=== PATIENT | female | born 1940 | race Caucasian/White ===

== ENCOUNTER → 2016-10-01 | Outpatient (CLI) | payer OTHER ==
[~2016-10-01] MED LIST: ACET-1138 PO; APIX1TAB3 PO; ASCO10003 PO; ATEN50TA8 PO; BIOTIN PO; CALC600T9 PO; CRS/10 PO; CZR50 PO; FLEC100T21 PO; FOLI1TAB7 PO; FRS/40 PO; OMEG10007 PO; ONDA8TAB6 PO; OXYSR10 PO; POTA20TA16 PO; RXC5 PO; SENNTAB23 PO; TRAZ100T29 PO
[2016-10-01 15:14] LABS: BASO % 0.5 %; BASO ABS # 0.03 K/uL (0-0.2); COMPLETE YES; HEMATOCRIT 38.9 % (37-47); IG% 0.2 %; LYMPH % 21.8 %; LYMPH ABS # 1.36 K/uL (1.2-3.4); MEAN CELL VOLUME 93.1 fL (80-100); MEAN CORPUSCULAR HEMOGLOBIN 29.9 pg (25-34); MEAN CORPUSCULAR HGB CONC 32.1 g/dl (32-36); MEAN PLATELET VOLUME 10.9 fL (7.4-10.4); MONO % 14.6 %; NEUT % 58.9 %; PLATELET COUNT 271 K/uL (130-400); RED BLOOD COUNT 4.18 M/uL (4.2-5.4); WHITE BLOOD COUNT 6.25 K/uL (4.8-10.8)
[2016-10-01 15:28] LABS: PARTIAL THROMBOPLASTIN RATIO 1.1; PROTHROMBIN TIME (PATIENT) 10.4 SECONDS (9.0-12.0)
[2016-10-01 15:40] LABS: BLOOD UREA NITROGEN 13 mg/dl (7-18); CARBON DIOXIDE 29 mmol/L (21-32); CHLORIDE 104 mmol/L (98-107); CREATININE 0.82 mg/dl (0.60-1.20); GLUCOSE 98 mg/dl (70-99); POTASSIUM 3.9 mmol/L (3.5-5.1); SODIUM 141 mmol/L (136-145)
[2016-10-01 16:36] LABS: URINE APPEARANCE CLOUDY (CLEAR); URINE BILIRUBIN NEG (NEG); URINE COLOR YELLOW; URINE NITRITE NEG (NEG); URINE PH 7.5 (4.5-7.5); UROBILINOGEN NEG (NEG)
[2016-10-01 16:43] LABS: MANUAL MICROSCOPIC REQUIRED? NO; REVIEW REQ? NO
[2016-10-02 06:55] LABS: ESTIMATED AVERAGE GLUCOSE 88 mg/dl; HA1C FLAG Normal (Normal)
--- NOTE | 2016-10-06 12:21 | CODING QUERY MEDICAL NECESSITY ---
SUPPORTING DIAGNOSIS NEEDED A supporting diagnosis is required for the test/procedure performed on this patient in order for us to be reimbursed by the patient's insurance. Please provide a supporting diagnosis for the following test/procedure listed below next to the test name along with your signature. *If there is no additional diagnosis for this patient that would support the following test/procedure please document that below next to the test/procedure. Test(s)/Procedure(s) that require a supporting diagnosis: DOS 10/01 * Hba1c DIAGNOSIS: * CBC DIAGNOSIS: * PTINR DIAGNOSIS: Provider Signature: Date: Thank you Gilda Moul[facility] Health Information Management Once completed, please kindly fax back to [phone] For questions please call [phone]
== END | disposition home or self-care (01) ==
LOC: C.LAB 14:07
DX: Z01.812 Encounter for preprocedural laboratory examination (principal)

== ENCOUNTER 2016-10-16 10:50 | Inpatient (IN) | payer OTHER ==
[2016-10-06 15:43] VITALS: BMI 28.0
--- NOTE | 2016-10-15 10:37 | HISTORY & PHYSICAL EXAMINATION ---
DATE OF ADMISSION: 10/16/2016 CHIEF COMPLAINT: Right knee pain. HISTORY OF PRESENT ILLNESS: The patient is a 76-year-old female approximately 3 months status post revision right total knee arthroplasty. She suffered a fall around Leah time. She was seen and evaluated in our office and x-rays and examination did not reveal any obvious significant injuries. She was reevaluated several weeks ago and continues to have extensor lag with her knee lacking approximately 30 degrees of terminal extension. Due to this extensor abnormality, she is now scheduled for a right total knee exploration and possible extensor mechanism repair. PAST MEDICAL HISTORY: Hypertension, atrial fibrillation, hyperlipidemia, ulcerative colitis in remission, mitral regurg, coronary artery disease. PAST SURGICAL HISTORY: Right total knee and right total knee revision as above, left total knee arthroplasty, multiple endoscopies, mastectomy, heart catheterization. MEDICATIONS: Include furosemide 40 mg daily, vitamin C 500 mg daily, calcium daily, folic acid 1 mg daily, stool softener 2 daily, atenolol 50 mg daily, Crestor 10 mg daily, fish oil 1200 mg daily, flecainide 100 mg 2 times daily, Eliquis 5 mg daily, trazodone 100 mg daily, losartan 50 mg daily, potassium chloride 10 mEq daily. ALLERGIES: No known drug allergies. SOCIAL HISTORY AND REVIEW OF SYSTEMS: Noncontributory. PHYSICAL EXAMINATION: GENERAL: Well-nourished, well-developed elderly female who appears her stated age. HEENT: Normocephalic, atraumatic, extraocular movements intact, oropharynx pink and moist. NECK: Supple without adenopathy. LUNGS: Clear to auscultation bilaterally. HEART: Regular rate and rhythm. ABDOMEN: Soft, nontender, nondistended. EXTREMITIES: The upper extremities are within normal limits. The right knee has a well-healed midline incision from her previous arthroplasty. She lacks approximately 30 degrees of terminal knee extension. There is no obvious palpable defect in the medial retinacular/extensor mechanism region. X-RAYS: X-rays were reviewed. She has a revision total knee in place. There is no obvious malalignment of the patella on the merchant view. ASSESSMENT: Right total knee extensor lag status post recent fall, possible extensor mechanism disruption. PLAN: Risks versus benefits were discussed. Consent was obtained. The patient's primary care physician is Dr. Alexis Lennon from [place]. Will proceed with right total knee exploration and possible extensor mechanism repair in the near future.
[2016-10-16] VITALS (7 sets, daily range): BP systolic 121–156; BP diastolic 65–76; PULSE 57–70; TEMP 36.4–37.3; O2SAT 93–95; Ht 149.9 cm; Wt 65.9 kg
[~2016-10-16] VITALS: Ht 149.9 cm; Wt 65.9 kg
[~2016-10-16 10:50] MED LIST changes: -ACET-1138 PO; +ATROPINE SULFATE 0.1 MG/ML 5ML SYR IV PRN; +BUPIVACAINE 0.25% 30 ML VIAL ONE; +BUPIVACAINE 0.5 % 5 MG/1 ML PF 10ML VIAL ONE; +EpHEDrine SULFATE INJ 50 MG/ML AMP IV PRN; +FENTANYL CITRATE INJ 50 MCG/1 ML 2 ML VIAL IV PRN; +LACTATED RINGER'S 1000ML 1,000 ML IV SCH; -ONDA8TAB6 PO; +ONDANSETRON INJ 2 MG/ML 2 ML VIAL IV PRN; -OXYSR10 PO; -RXC5 PO
[2016-10-16] MEDS ORDERED: FENTANYL CITRATE INJ 50 MCG/1 ML 2 ML VIAL ONE (11:45)
[2016-10-16] MEDS ORDERED: MIDAZOLAM HCL 1 MG/ML 2ML VIAL ONE (11:45)
--- NOTE | 2016-10-16 12:24 | History & Physical Bridge Note ---
H&P Re-Evaluation Bridge Note: I have examined the patient, reviewed the History & Physical and in the interval since the performance of the History & Physical I have noted the following changes of clinical significance: No changes noted
[2016-10-16] MEDS ORDERED: BACITRACIN 50000 UNIT VIAL ONE (12:58)
[2016-10-16] MEDS ORDERED: POVIDONE-IODINE OP SOLN 30 ML BTL ONE (12:58)
[2016-10-16] MEDS ORDERED: CEFAZOLIN SOD 1000MG/55 ML D5W IV ONE (13:24)
[2016-10-16] MEDS ORDERED: NURSING VERBAL MED ORDER STA (13:29)
--- NOTE | 2016-10-16 14:26 | [facility] Post Operative Brief Note ---
Immediate Operative Summary Operative Date Oct 16, 2016. Pre-Operative Diagnosis extensor mechanism rupture right tka revision Post-Operative Diagnosis swame Procedure(s) Performed repain extensor mechanism and lateral snip Surgeon Estefani Industrial Nurse Surgeon(s) Brittnee Estimated Blood Loss 18cc Findings rupture swuperior pole extensor mechanism and lateral snip Specimens none Anesthesia spinal Complication(s) None Disposition Recovery Room / PACU
[2016-10-16] MEDS ORDERED: OXYCODONE/ACETAMINOPHEN 5-325 TAB PO PRN (14:45)
[2016-10-16] MEDS ORDERED: ALUMINUM/MAGNESIUM/SIMETH (MAALOX MAX) 30 ML UDC PO PRN (14:45)
[2016-10-16] MEDS ORDERED: BISACODYL 10 MG SUPP PR PRN (14:45)
[2016-10-16] MEDS ORDERED: FUROSEMIDE 40 MG TAB PO PRN (14:45)
[2016-10-16] MEDS ORDERED: MoRPHine SULFATE 2 MG/ML CARP IV PRN (14:45)
[2016-10-16] MEDS ORDERED: ONDANSETRON INJ 2 MG/ML 2 ML VIAL IV PRN (14:45)
[2016-10-16] MEDS ORDERED: ZOLPIDEM TARTRATE 5 MG TAB PO PRN (14:45)
[2016-10-16] MEDS ORDERED: METOCLOPRAMIDE HCL INJ 5 MG/ML 2 ML VIAL IV PRN (14:45)
[2016-10-16] MEDS ORDERED: POTASSIUM CHLORIDE 20 MEQ TABCR PO PRN (14:45)
[2016-10-16] MEDS ORDERED: MAGNESIUM HYDROXIDE SUSP 30 ML UDC PO PRN (14:45)
[2016-10-16] MEDS ORDERED: IV FLUIDS COMPLETED PRN (15:00)
[2016-10-16] MEDS ORDERED: MoRPHine SULFATE 4 MG/ML 1 ML CARP\\VIAL IV PRN (15:30)
[2016-10-16] MEDS ORDERED: MoRPHine SULFATE 10 MG/ML CARP/VIAL IV PRN (15:30)
--- NOTE | 2016-10-16 15:32 | Anesthesiology Progress Note ---
Anesthesia Post Op Note Date & Time Oct 16, 2016 at 15:32 Vital Signs Pain Intensity: 0 Vital Signs Past 12 Hours Date Time Temp Pulse Resp B/P Pulse Ox O2 Delivery O2 Flow Rate FiO2 10/16/16 15:25 64 14 115/54 98 Nasal Cannula 2 10/16/16 15:15 62 13 108/55 96 Nasal Cannula 2 10/16/16 15:05 61 14 105/57 95 Nasal Cannula 2 10/16/16 14:55 63 16 105/49 96 Nasal Cannula 2 10/16/16 14:45 59 16 103/45 93 Nasal Cannula 2 10/16/16 14:36 37.1 62 16 86/41 92 Nasal Cannula 2 10/16/16 11:46 36.4 57 18 129/68 93 Room Air Notes Mental Status: alert / awake / arousable, participated in evaluation Pt Amnestic to Procedure: Yes Nausea / Vomiting: adequately controlled Pain: adequately controlled Airway Patency, RR, SpO2: stable & adequate BP & HR: stable & adequate Hydration State: stable & adequate Neuraxial Anesthesia: was administered, sensory block is resolving Anesthetic Complications: no major complications apparent
--- NOTE | 2016-10-16 16:01 | OPERATIVE REPORT ---
DATE OF OPERATION: 10/16/2016 PREOPERATIVE DIAGNOSIS: Partial extensor mechanism disruption, right total knee revision. POSTOPERATIVE DIAGNOSIS: Partial extensor mechanism disruption, right total knee revision. PROCEDURE: Exploration and repair lateral snip extensor mechanism, right knee revision. SURGEON: Dr. Smith Jara. OPERATING ROOM ORDERLY: Jordan Beaulieu PA-C. Mr. Beaulieu was essential for portions of the case including positioning, prepping, draping, surgical assistance, wound closure and dressing application. ANESTHESIA: Spinal with no sedation. COMPLICATIONS: None. DESCRIPTION OF PROCEDURE: Following induction of adequate spinal anesthesia, the patient's right leg was prepped and draped in the usual sterile manner. The limb was exsanguinated with an Esmarch bandage and a tourniquet was inflated to 300 mmHg. The superior half of the incision was reopened, subcutaneous tissue was sharply and bluntly dissected and at the superior pole of the incision in the area where the lateral snip had been made to expose the knee for the previous revision, there was found to be a defect. The knee was irrigated as much old blood was could be evacuated and was evacuated from the knee. Digital palpation along the inner surface of the joint capsule revealed no medial retinacular defect other than this small defect at the superior pole of the patella. Using #5 FiberWire sutures in [id number] fashion, the lateral snip in superior pole of the incision was repaired. Care was taken to ensure some advancing of the extensor mechanism to limit any further extensor lag. Subcutaneous tissues were closed using 0 Dexon. Skin was closed with tita. Sterile dressing of Adaptic, 4x4s, sterile Webril and medial and lateral plaster slabs was applied. The patient tolerated the procedure well. I attest to the content of the Intraoperative Record and any orders documented therein. Any exceptions are noted below. MTDD
[2016-10-16] MEDS: D5W AND 1/2NSS + 20MEQ KCL 1,000 ML IV SCH (16:47)
[2016-10-16] MEDS: FERROUS GLUCONATE 324 MG TAB PO SCH (18:14)
[2016-10-16] MEDS: KETOROLAC TROMETHAMINE 15 MG/ML VIAL IV. SCH (18:14)
[2016-10-16] MEDS ORDERED: TRAZODONE HCL 100 MG TAB PO SCH (21:00)
[2016-10-16] MEDS ORDERED: LOSARTAN POTASSIUM 50 MG TAB PO SCH (21:00)
[2016-10-16] MEDS ORDERED: ROSUVASTATIN CALCIUM 10 MG TAB PO SCH (21:00)
[2016-10-16] MEDS: PREGABALIN 75 MG CAP PO SCH (21:24)
[2016-10-16] MEDS: FLECAINIDE ACETATE 100 MG TAB PO SCH (21:24)
[2016-10-16] MEDS: ACETAMINOPHEN 500 MG TAB PO SCH (21:25)
[2016-10-16] MEDS: CEFAZOLIN IV 1,000 MG in DEXTROSE 5% 50ML 50 ML IV SCH (21:26)
[2016-10-17] MEDS: KETOROLAC TROMETHAMINE 15 MG/ML VIAL IV. SCH ×3 (00:15→13:27)
[2016-10-17] MEDS: D5W AND 1/2NSS + 20MEQ KCL 1,000 ML IV SCH (02:29)
[2016-10-17 03:43] VITALS: BP 109/61; PULSE 60; TEMP 36.4; O2SAT 97
[2016-10-17] MEDS: ACETAMINOPHEN 500 MG TAB PO SCH ×2 (05:43→13:26)
[2016-10-17] MEDS: CEFAZOLIN IV 1,000 MG in DEXTROSE 5% 50ML 50 ML IV SCH (05:43)
[2016-10-17 08:01] VITALS: BP 123/64; PULSE 58; TEMP 36.7; O2SAT 92
--- NOTE | 2016-10-17 08:08 | Orthopedic Progress Note ---
Orthopedic Progress Note Date of Service Oct 17, 2016. Subjective Post OP Day: 1 Reports: feeling well Objective N/V intact, splint C/D/I, dressing C/D/I, toes mobile Date Time Temp Pulse Resp B/P Pulse Ox O2 Delivery O2 Flow Rate FiO2 10/17/16 08:01 36.7 58 18 123/64 92 Room Air 10/17/16 03:43 36.4 60 16 109/61 97 Room Air 10/17/16 00:00 Room Air 10/16/16 23:50 36.8 57 16 127/71 94 Room Air 10/16/16 19:17 37.0 57 16 154/76 94 Room Air 10/16/16 17:51 37.3 70 16 151/75 95 Room Air 10/16/16 16:54 36.9 64 16 156/76 94 Room Air 10/16/16 16:19 36.9 66 16 135/67 94 Room Air 10/16/16 15:50 93 Room Air 10/16/16 15:50 93 Room Air 10/16/16 15:50 37.2 67 16 121/65 93 Room Air 10/16/16 15:35 36.7 65 14 121/57 95 Nasal Cannula 2 10/16/16 15:25 64 14 115/54 98 Nasal Cannula 2 10/16/16 15:15 62 13 108/55 96 Nasal Cannula 2 10/16/16 15:05 61 14 105/57 95 Nasal Cannula 2 10/16/16 14:55 63 16 105/49 96 Nasal Cannula 2 10/16/16 14:45 59 16 103/45 93 Nasal Cannula 2 10/16/16 14:36 37.1 62 16 86/41 92 Nasal Cannula 2 10/16/16 11:46 36.4 57 18 129/68 93 Room Air Assessment & Plan Assessment: 76 yo female stable POD #1 s/p extensor mechanism repair right TKA Plan: 1. Med management 2. DVT prophylaxis- Natalee Blackwell, SCDs 3. PT/OT- gait training 4. D/C planning- home w/ OPPT
[2016-10-17] MEDS ORDERED: RXC5 PO (08:10)
[2016-10-17] MEDS ORDERED: ACET-1138 PO (08:10)
--- NOTE | 2016-10-17 08:12 | Discharge Instructions ---
Discharge Instructions Admission Reason for Admission: Right Knee Extensor Mechanism Rupture S/P Tka Discharge Discharge Diagnosis / Problem: Right extensor mechanism rupture Discharge Goals Goal(s): Decrease discomfort, Improve function Activity Recommendations Activity Limitations: as noted below Weightbearing Status: Right weightbearing (as tolerated) . Instructions / Follow-Up Instructions / Follow-Up Maintain splint/dressing until follow-up appt. WBAT right lower extremity with walker. Frequent ice and elevation as needed. Current Hospital Diet Patient's current hospital diet: Regular Diet Discharge Diet Recommended Diet: Regular Diet Procedures Procedures Performed: repain extensor mechanism and lateral snip Pending Studies Studies pending at discharge: no Laboratory Results Hemoglobin A1c Test 10/01/16 14:17 Range/Units Estimated Average Glucose 88 mg/dl Hemoglobin A1c 4.7 4.5-5.6 % Medical Emergencies . Who to Call and When: Medical Emergencies: If at any time you feel your situation is an emergency, please call 911 immediately. . Non-Emergent Contact Non-Emergency issues call your: Surgeon Call Non-Emergent contact if: temperature is above 101.5, your pain is not controlled, wound has increased drainage, wound has increased redness . "Provider Documentation" section prepared by Jordan Beaulieu PA-C. VTE Core Measure Inpt VTE Proph given/why not?: Other Anticoagulation (Eliquis), T.E.Adelita. Stockings, SCD's
[2016-10-17] MEDS ORDERED: PANTOprazole SOD 40 MG TAB PO SCH (09:00)
[2016-10-17] MEDS ORDERED: MULTIVITAMIN TAB PO SCH (09:00)
[2016-10-17] MEDS: FLECAINIDE ACETATE 100 MG TAB PO SCH (09:28)
[2016-10-17] MEDS: PREGABALIN 75 MG CAP PO SCH (09:28)
[2016-10-17] MEDS: FERROUS GLUCONATE 324 MG TAB PO SCH ×2 (09:28→13:25)
[2016-10-17 09:53] VITALS: O2SAT 92
[2016-10-17] MEDS ORDERED: APIXABAN 2.5 MG TAB PO SCH (12:00)
[2016-10-17 12:34] VITALS: BP 117/68; PULSE 53; TEMP 36.8; O2SAT 95
[2016-10-17 13:34] VITALS: BP 117/68; PULSE 53; TEMP 36.8; O2SAT 95
--- NOTE | 2016-10-22 14:25 | DISCHARGE SUMMARY ---
CHIEF COMPLAINT: Right knee extensor mechanism disruption. Please see complete history and physical examination. HOSPITAL COURSE: The patient underwent right total knee extensor mechanism repair without complication. She tolerated the procedure well and was discharged to recovery room in stable condition. Her postop course was relatively uneventful. Her postoperative pain was reasonably well controlled with a combination of spinal anesthesia, IV, and oral pain medications. She was resumed on her normal Eliquis for postoperative DVT prophylaxis. She tolerated postop physical therapy reasonably well. She was ambulating and transferring appropriately. She was discharged home on postop day 1. She will continue with the use of her splint and a walker for ambulation. She will follow up in our office in approximately 10-14 days for initial postop evaluation.
== END 2016-10-17 13:59 | disposition home or self-care (01) | DRG 502 ==
LOC: ENRESERVTM → ENRESERVDT → C.ACU 10:50 → C.3E 12:20 → OBSVTOIN 10-17 08:18
PROC: 0LQQ0ZZ Repair Right Knee Tendon, Open Approach (ICD-10-PCS; principal; 2016-10-17)
DX: S76.119A Strain of unspecified quadriceps muscle, fascia and tendon, initial encounter (principal); W19.XXXA Unspecified fall, initial encounter; I10 Essential (primary) hypertension; I48.91 Unspecified atrial fibrillation; E78.5 Hyperlipidemia, unspecified; I25.10 Atherosclerotic heart disease of native coronary artery without angina pectoris; I34.0 Nonrheumatic mitral (valve) insufficiency; Z96.653 Presence of artificial knee joint, bilateral; Z79.01 Long term (current) use of anticoagulants; Z79.899 Other long term (current) drug therapy